=== PATIENT | male | born 1970 | race African-American/Black ===

== ENCOUNTER → 2019-02-23 | Outpatient (CLI) | payer BC, OTHER ==
[~2019-02-23] MED LIST: AMLO1POW3 MC; ASPI81TA50 PO; ATOR10TA60 PO; DICY10CA3 PO; LISI1POW MC; [UNRECOGNIZED DRUG - CODE] MC
--- NOTE | 2019-02-23 11:12 | KCIC ---
MRI Brain without contrast History: Chronic headaches, gait disturbance Technique: Multiplanar, multisequential noncontrast MR imaging was performed of the brain. Comparison: None Findings: There is mild motion. There is no evidence of recent infarct or cytotoxic edema. The ventricles, sulci, and cisterns are within normal limits in size and configuration. There is no significant midline shift, intraaxial mass effect, or focal abnormal extra-axial fluid collection. Allowing for motion, no significant signal abnormality is identified of the brain parenchyma. There is preservation of the major intracranial flow-voids at the skull base. The mastoid air cells are aerated. The cerebellar tonsils are normal in location. There is no significant abnormality of the pineal gland or pituitary gland. There is negligible patchy ethmoid air cell mucosal thickening greater anteriorly. There is mild mucosal thickening/small mucous retention cyst of the inferior right maxillary sinus. There is preserved marrow signal of the clivus. Impression: 1. There is no significant intracranial abnormality. Electronically signed by: Darian Melendrez MD (02/23/2019 11:09 AM) [id number]
== END | disposition home or self-care (01) ==
LOC: KCIC MRI 09:54
PROVIDERS: ATTEND Psychiatry & Neurology Neurology with Special Qualifications in Child Neurology
DX: G44.89 Other headache syndrome (principal)
CPT/HCPCS: 70551

== ENCOUNTER → 2019-07-03 | Outpatient (CLI) | payer BC ==
--- NOTE | 2019-07-03 13:45 | KCIC ---
EXAM: Brain MRI without contrast. HISTORY: Ataxia. TECHNIQUE: Multiplanar, multisequence magnetic resonance imaging of the brain was performed without contrast. COMPARISON: 02/23/2019. FINDINGS: There is no restricted diffusion to suggest acute or subacute infarction. There is no mass effect or midline shift. There is no hydrocephalus. There are tiny foci of T2/FLAIR hyperintensity within the left frontal white matter. There are normal flow voids within the cerebral vessels. The orbits are unremarkable. There is inferior right maxillary sinus mucosal thickening. The mastoid air cells are unremarkable. No suspicious calvarial lesion is seen. There is mild retrolisthesis of C2 on C3. IMPRESSION: 1. No acute intracranial finding. 2. Tiny foci of signal change within the cerebral white matter. There is a nonspecific finding which may be artifactual or due to chronic small vessel disease or chronic migraine headaches. The imaging appearance does not favor demyelinating disease. Electronically signed by: Melany Angelo MD (07/03/2019 1:42 PM) [id number]
== END | disposition home or self-care (01) ==
LOC: KCIC MRI 12:44
PROVIDERS: ATTEND Family Medicine
DX: G44.89 Other headache syndrome (principal); R27.0 Ataxia, unspecified; M53.82 Other specified dorsopathies, cervical region
CPT/HCPCS: 70551

== ENCOUNTER → 2019-08-10 | Outpatient (CLI) | payer BC ==
--- NOTE | 2019-08-10 11:39 | KCIC ---
MRI of the brain without contrast 08/10/2019 Clinical History: Ataxia. Chronic imbalance and dizziness. Technique: Unenhanced T1-weighted and FLAIR sagittal and axial, T2-weighted axial and coronal and gradient echo and diffusion-weighted axial images of the brain were obtained. Findings: Comparison study is dated 07/03/2019. The ventricles and sulci are within normal limits in size and configuration. The tiny focus of increased signal intensity seen within the white matter of the left frontal lobe on the previous MRI is not as well-visualized on today's study and may have been artifactual. No area of significant abnormal signal intensity is seen involving the brain parenchyma. No extra-axial fluid collection is seen. There is no MRI evidence of acute ischemia/infarction. Mild mucosal thickening in seen scattered throughout the paranasal sinuses. There are minimal bilateral mastoid effusions. Normal flow voids are seen within the major vascular structures surrounding the brain parenchyma. Impression: 1. Negative MRI of the brain. 2. Mild paranasal sinus and mastoid disease. Electronically signed by: Eoly Mcgee MD (08/10/2019 11:36 AM) [id number]
== END | disposition home or self-care (01) ==
LOC: KCIC MRI 09:21
PROVIDERS: ATTEND Psychiatry & Neurology Neurology with Special Qualifications in Child Neurology
DX: J32.8 Other chronic sinusitis (principal); R27.0 Ataxia, unspecified
CPT/HCPCS: 70551